=== PATIENT | male | born 1985 | race Hispanic/Latino ===

== ENCOUNTER → 2024-03-11 07:13 | Outpatient (CLI) | payer OTHER, SELFPAY ==
--- NOTE | 2024-03-11 07:19 | DI.CT.S_ITS ---
PROCEDURE: CT ANGIO NECK INDICATIONS: Conor's syndrome TECHNIQUE: After the administration of intravenous contrast, 1.5 mm axial sections acquired from the aortic arch to the [place] of [place]. Maximum intensity projection (MIP) reformats were then performed. COMPARISON: None. FINDINGS: Neck CT Angiogram: Internal carotid arteries: Left cervical ICA is diminutive throughout its course. Petrous ICA canal is likewise diminutive. Supraclinoid left ICA is supplied by a widely patent ophthalmic artery and posterior communicating artery. 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 No significant stenosis. No dissection or occlusion. External carotid arteries: Unremarkable. No occlusion. Vertebral arteries: Unremarkable. No significant stenosis. No dissection or occlusion. Aortic Arch and Mediastinum: Partially visualized aortic arch unremarkable without evidence of aneurysm. Origins of the great vessels unremarkable. 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 Both lung apices are clear without evidence of Pancoast tumor IMPRESSION: 1. 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 No evidence of atherosclerotic stenosis, aneurysm or malformation. 2. 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 Lung apices are clear without Pancoast tumor Approved by: Elder Bright M.D. on 03/11/2024 at 17:46
--- NOTE | 2024-03-11 07:20 | DI.MRI.S_ITS ---
PROCEDURE: MR HEAD/BRAIN WO/W CON INDICATIONS: Conor's syndrome TECHNIQUE: Noncontrast axial T1 spin echo, axial T2 fast spin echo, sagittal and axial FLAIR, axial gradient echo, axial diffusion and ADC through the brain. After the administration of contrast, axial and coronal and sagittal T1 spin echo with fat saturation through the brain, coronal thin-slice T1 spin echo with fat saturation through the cavernous sinuses. COMPARISON: [facility], MR, MR CERVICAL SPINE WO CON, 03/11/2024, 7:55. [facility], CT, CT ANGIO NECK, 03/11/2024, 7:43. FINDINGS: Image quality: Excellent. Cavernous sinuses: In this patient with this given history, scrutiny is given to the cranial nerves. No masses or abnormal enhancement can be seen to explain the patient's presenting symptoms. CSF spaces: Ventricles are normal in size and shape. Basal cisterns are patent. No extra-axial fluid collections. Brain: No acute intracranial bleeds or mass effects. [place]-white matter interface is intact. No abnormal intracranial enhancement. Diffusion weighted images demonstrate no acute ischemic insults. Brainstem appears normal. Normal intravascular flow voids are present. Skull and face: Within the left parotid superficially and laterally, there is a small focus of increased enhancement seen, as on series 18, image 23, measuring 5 mm. Calvarial marrow signal is normal. Orbits appear normal. Sinuses: Sinuses and mastoids appear clear. IMPRESSION: No definite imaging explanation is found for this patient's presenting symptoms. A 5 mm focus of abnormal enhancement can be seen involving the superficial lateral aspect of the left parotid gland. If clinically appropriate, please consider a follow-up ultrasound for further evaluation. Dictated by: Arvin Okeefe M.D. on 03/11/2024 at 10:14 Approved by: Arvin Okeefe M.D. on 03/11/2024 at 10:21
--- NOTE | 2024-03-11 07:21 | DI.MRI.S_ITS ---
PROCEDURE: MR CERVICAL SPINE WO CON INDICATIONS: Conor's syndrome TECHNIQUE: Noncontrast sagittal T1 spin echo and T2 fast spin echo, sagittal STIR, foraminal oblique sagittal T2 fast spin echo, and axial gradient echo or T2 fast spin echo through the cervical spine. COMPARISON: [facility], CT, CT ANGIO NECK, 03/11/2024, 7:43. FINDINGS: Image quality: Excellent. Alignment and Curvature: Trace anterolisthesis of C3 on C4. Probable congenital fusion of the vertebral bodies and facet joints of C4-C5 with an unfused inferior apophysis anteriorly. Chronic mild anterior vertebral body height loss of C6. Bone Marrow: Marrow demonstrates normal overall signal. Spinal Cord: Visualized spinal cord has normal size and signal. No cerebellar tonsillar herniation. Paraspinous Soft Tissues: No paravertebral masses. Prevertebral soft tissues are normal in thickness. C2-C3: Normal appearance. C3-C4: Trace anterolisthesis of C3 on C4. No canal stenosis. No significant foraminal stenosis. C4-C5: Interbody fusion and facet fusion is likely congenital. No canal stenosis or foraminal stenosis. C5-C6: No central canal stenosis. AP diameter of the central canal is 10.5 mm. Focal uncovertebral joint osteophyte in the right foramen results in moderate to severe right foraminal narrowing and right foraminal C6 nerve root impingement. There is moderate left foraminal narrowing. C6-C7: Right facet hypertrophy. No canal stenosis or foraminal stenosis. C7-T1: No canal stenosis or foraminal stenosis. IMPRESSION: 1. Probable congenital fusion of the C4 and C5 vertebral bodies and facet joints. 2. No canal stenosis. 3. At C5-C6, there is moderate to severe left foraminal stenosis add moderate left foraminal stenosis. Dictated by: Henry Ibanez M.D. on 03/11/2024 at 12:06 Approved by: Henry Ibanez M.D. on 03/11/2024 at 12:21
== END ==
PROVIDERS: Referring Provider Optometrist; Visit Provider Optometrist
DX: G90.2 Horner's syndrome (principal)
CPT/HCPCS: 70498; 70553; 72141; A9579; Q9967